=== PATIENT | male | born 1960 | race Caucasian/White ===

== ENCOUNTER 2018-04-30 13:26 | Day surgery (SDC) | payer BC ==
[~2018-04-30 13:26] MED LIST: ACET500; ASCO500 PO; ATEN100; Advil200 M1; Aspirin EC81 MG PO; Cinnamon500 MG PO; DOXA2 PO; LISI20 PO; LORA1 PO; MAGNESIUM400 M1 PO; MELA3 PO; PRAV20 PO; TESTOSTERONE INJECT IM; TURMERIC500 M2 PO; Zithromax250 MG PO
== END 2018-04-30 15:25 | disposition home or self-care (01) ==
LOC: ORSCSDS 13:26
PROVIDERS: Surgery
PROC: 0DBK8ZX Excision of Ascending Colon, Via Natural or Artificial Opening Endoscopic, Diagnostic (ICD-10-PCS; principal; 2018-04-30 15:00)
DX: Z12.11 Encounter for screening for malignant neoplasm of colon (principal); D12.2 Benign neoplasm of ascending colon; K57.30 Diverticulosis of large intestine without perforation or abscess without bleeding; K64.8 Other hemorrhoids; I10 Essential (primary) hypertension; Z79.899 Other long term (current) drug therapy
CPT/HCPCS: 88305; J2405; J7120

== ENCOUNTER 2019-01-20 00:44 | Observation (INO) | payer BC ==
[~2019-01-20] VITALS: Ht 182.9 cm; Wt 105.7 kg
[2019-01-20 01:10] LABS: BASOPHILS ABSOLUTE AUTO 0.04 K/mm3 (0.00-0.23); BASOPHILS PERCENT AUTO 0 % (0-2); EOSINOPHILS ABSOLUTE AUTO 0.02 K/mm3 (0.00-0.68); EOSINOPHILS PERCENT AUTO 0 % (0-6); Hematocrit 53.8 % (37.0-53.0); Hemoglobin 18.2 g/dL (13.5-17.5); IMMATURE GRAN ABSOLUTE AUTO 0.08 K/mm3 (0.00-0.10); IMMATURE GRAN PERCENT AUTO 1 % (0-1); LYMPHOCYTES ABSOLUTE AUTO 0.48 K/mm3 (0.84-5.20); LYMPHOCYTES PERCENT AUTO 3 % (21-46); MONOCYTES ABSOLUTE AUTO 0.95 K/mm3 (0.16-1.47); MONOCYTES PERCENT AUTO 6 % (4-13); Mean Corpuscular HGB 30.2 pg (26.0-34.0); Mean Corpuscular HGB Conc 33.8 g/dL (31.5-36.5); Mean Corpuscular Volume 89 fL (80-100); Mean Platelet Volume 8.9 fL (9.1-12.4); NEUTROPHILS ABSOLUTE AUTO 14.45 K/mm3 (1.96-9.15); NEUTROPHILS PERCENT AUTO 90 % (41-73); Platelet Count 230 K/mm3 (150-400); RDW Coefficient Variation 12.6 % (11.7-14.2); RDW Standard Deviation 41.4 fL (35.1-46.3); Red Blood Cell Count 6.03 M/mm3 (4.30-5.90); White Blood Cell Count 16.02 K/mm3 (4.00-11.30)
[2019-01-20] MEDS ORDERED: VENL25 PO (01:11)
[2019-01-20 01:28] LABS: Alanine Aminotransfer (ALT/SGP 41 U/L (12-78); Albumin, Blood 4.5 g/dL (3.4-5.0); Albumin/Globulin Ratio 1.4 (0.8-1.8); Alk Phos 70 U/L (50-136); Anion Gap 8 mmol/L (6-16); Aspartate Aminotrans (AST/SGOT 20 U/L (12-37); Bilirubin, Total 0.8 mg/dL (0.1-1.0); Blood Urea Nitrogen 22 mg/dL (8-24); Bun/Creatinine Ratio 21.6 (12.0-20.0); CO2, Blood 26 mmol/L (21-32); Calcium, Blood 9.2 mg/dL (8.5-10.1); Chloride, Blood 104 mmol/L (98-108); Creatinine, Blood 1.02 mg/dL (0.60-1.20); Globulin, Blood 3.2 g/dL (2.2-4.0); Glomerular Filtration Rate >60 (60-); Glucose, Blood 98 mg/dL (70-99); Potassium, Blood 4.3 mmol/L (3.5-5.5); Sodium, Blood 138 mmol/L (136-145); Total Protein, Blood 7.7 g/dL (6.4-8.2)
[2019-01-20 05:11] LABS: Source, Urine Clean Catch
[2019-01-20 05:25] LABS: Bilirubin, Urine Neg (Neg); Blood, Urine Neg (Neg); Glucose Qualitative, Urine Neg (Neg); Ketones, Urine 3+ (Neg); Leukocyte Esterase, Urine Neg (Neg); Nitrite, Urine Neg (Neg); Protein, Urine Neg (Neg); Specific Gravity, Urine 1.015 (1.003-1.022); Urobilinogen, Urine NORM (Normal)
[2019-01-20 05:32] LABS: Appearance, Urine Clear (Clear); Color, Urine Yellow (P-Yellow)
--- NOTE | 2019-01-20 05:59 | NUR ---
Patient received awake, A&O x4. Vital signs stable, with a low grade temperature. No complaints of pain. IVF infusing well. NPO maintained. Voiding well. Independent activity. Resting comfortably.
--- NOTE | 2019-01-20 10:50 | NUR ---
PT TO SURGERY AT THIS TIME. RESP UNLABORED. FAMILY AT THE BEDSIDE.
--- NOTE | 2019-01-20 11:01 | NUR ---
History, Chart, Medications and Allergies reviewed before start of procedure.Lungs clear T/O to Auscultation. Patient confirms NPO status and agrees with scheduled surgery. Pre-Op teaching done. Pt verbalizes understanding.
--- NOTE | 2019-01-20 17:11 | NUR ---
SUMMARY POD #0 LAP APPY. DRSG SITES REMAIN C/D/I. NO C/O PAIN. DENIES NAUSEA, PT IS TOLERATING PO INTAKE. HE HAS AMBULATED IN THE HALLS WITH STAND BY ASSIST. VOIDING WNL. WCTM, CALL LIGHT IN REACH
--- NOTE | 2019-01-21 05:12 | NUR ---
Pt A&O x4. Vital signs stable. Ambulating in hallway. no complaints of pain. Dressing C/D/I. Voiding well. Tolerating regular diet. Patient states he has not passed gas.
--- NOTE | 2019-01-21 06:30 | NUR ---
Patient reports passing gas.
--- NOTE | 2019-01-21 16:51 | NUR ---
D/C TO HOME WITH . D/C RX & INSTRUCTIONS WERE GIVEN. PT ENCOURAGED TO F/U [facility] FOR ANY PROBLEMS OR CONCERNS. INCISIONS C/D/I.
== END 2019-01-21 16:44 | disposition home or self-care (01) ==
LOC: ER 00:44 → SURS 00:45
PROVIDERS: Emergency Medicine; ADMIT Surgery
PROC: 0DTJ4ZZ Resection of Appendix, Percutaneous Endoscopic Approach (ICD-10-PCS; principal; 2019-01-20 11:00)
DX: K35.80 Unspecified acute appendicitis (principal); I10 Essential (primary) hypertension; F41.9 Anxiety disorder, unspecified; Z79.899 Other long term (current) drug therapy
CPT/HCPCS: 36415; 72193; 80053; 81003; 83690; 85025; 88304; 93005; 93010; 96361; 96365-59; 96366; 96375; 96375-59; 96376; 96376-59; 99285-25; G0378; J0295; J0330; J1100; J1170; J1885; J2250; J2405; J2543; J2704; J2710; J3010; J7030; J7120; Q9967

== ENCOUNTER 2022-05-10 22:58 | Emergency (ER) | payer OTHER ==
[~2022-05-10] VITALS: Ht 182.9 cm; Wt 101.6 kg
[~2022-05-10 22:58] MED LIST changes: +VENL25 PO
[2022-05-10 23:37] LABS: BASOPHILS ABSOLUTE AUTO 0.04 K/mm3 (0.00-0.23); BASOPHILS PERCENT AUTO 0 % (0-2); EOSINOPHILS ABSOLUTE AUTO 0.11 K/mm3 (0.00-0.68); EOSINOPHILS PERCENT AUTO 1 % (0-6); Hematocrit 50.7 % (37.0-53.0); Hemoglobin 17.2 g/dL (13.5-17.5); IMMATURE GRAN ABSOLUTE AUTO 0.04 K/mm3 (0.00-0.10); IMMATURE GRAN PERCENT AUTO 0 % (0-1); LYMPHOCYTES ABSOLUTE AUTO 1.24 K/mm3 (0.84-5.20); LYMPHOCYTES PERCENT AUTO 12 % (21-46); MONOCYTES PERCENT AUTO 10 % (4-13); Mean Corpuscular HGB 30.1 pg (26.0-34.0); Mean Corpuscular HGB Conc 33.9 g/dL (31.5-36.5); Mean Corpuscular Volume 89 fL (80-100); Mean Platelet Volume 8.7 fL (9.1-12.4); NEUTROPHILS ABSOLUTE AUTO 8.13 K/mm3 (1.96-9.15); NEUTROPHILS PERCENT AUTO 76 % (41-73); Platelet Count 235 K/mm3 (150-400); RDW Coefficient Variation 13.2 % (11.7-14.2); RDW Standard Deviation 43.6 fL (35.1-46.3); Red Blood Cell Count 5.72 M/mm3 (4.30-5.90); White Blood Cell Count 10.66 K/mm3 (4.00-11.30)
[2022-05-10 23:56] LABS: Albumin, Blood 3.9 g/dL (3.4-5.0); Albumin/Globulin Ratio 1.1 (0.8-1.8); Bilirubin, Total 0.3 mg/dL (0.1-1.0); Bun/Creatinine Ratio 30.5 (12.0-20.0); Calcium, Blood 9.7 mg/dL (8.5-10.1); Creatinine, Blood 1.18 mg/dL (0.60-1.20); Globulin, Blood 3.7 g/dL (2.2-4.0); Potassium, Blood 4.3 mmol/L (3.5-5.5); Total Protein, Blood 7.6 g/dL (6.4-8.2)
[2022-05-11] MEDS ORDERED: LISI20 PO (00:23)
[2022-05-11] MEDS ORDERED: MAGNESIUM OXID500 MG PO (00:24)
[2022-05-11] MEDS ORDERED: DEPO-TESTO200 MG/1 M IM (00:25)
[2022-05-11] MEDS ORDERED: XARELTO1 EAC1 PO (05:52)
== END 2022-05-11 06:10 | disposition home or self-care (01) ==
LOC: ER 22:58
PROVIDERS: Student in an Organized Health Care Education/Training Program
DX: I26.99 Other pulmonary embolism without acute cor pulmonale (principal); T38.7X5A Adverse effect of androgens and anabolic congeners, initial encounter; I10 Essential (primary) hypertension; Z79.899 Other long term (current) drug therapy; Z79.82 Long term (current) use of aspirin
CPT/HCPCS: 36415; 71046; 71260; 76700; 80053; 83690; 85025; 93005; 93010; 96374-59; 99284-25; A9270; J1885; Q9967

== ENCOUNTER 2024-06-25 09:51 | Emergency (ER) | payer OTHER, BC ==
[~2024-06-25] VITALS: Ht 182.9 cm; Wt 108.9 kg
[~2024-06-25 09:51] MED LIST changes: +DEPO-TESTO200 MG/1 M IM; +MAGNESIUM OXID500 MG PO; +MELO7.5; +XARELTO1 EAC1 PO
[2024-06-25 11:28] LABS: Calcium, Ionized (POC) 1.19 mmol/L (1.10-1.46); Chloride (POC) 103 mmol/L (98-108); Glucose (ISTAT POC) 97 mg/dL (70-99); Hemoglobin (POC) 13.3 g/dL (13.5-17.5); Potassium (POC) 4.4 mmol/L (3.5-5.5); Sodium (POC) 137 mmol/L (135-148); Total CO2 (POC) 22 mmol/L (21-32)
[2024-06-25 12:00] VITALS: BP 131/65
== END 2024-06-25 12:09 ==
LOC: ER 09:51
PROVIDERS: Family Medicine
DX: T69.9XXA Effect of reduced temperature, unspecified, initial encounter (principal); I10 Essential (primary) hypertension; Z79.82 Long term (current) use of aspirin; Z79.899 Other long term (current) drug therapy
CPT/HCPCS: 80047; 85014